=== PATIENT | male | born 1985 | race African-American/Black ===

== ENCOUNTER 2017-09-02 16:33 | Emergency (ER) | payer BC, SELFPAY | END 2017-09-02 19:53 | disposition home or self-care (01) | LOC: ERS 16:33 | DX: S02.5XXA Fracture of tooth (traumatic), initial encounter for closed fracture (principal); S00.83XA Contusion of other part of head, initial encounter; F17.210 Nicotine dependence, cigarettes, uncomplicated; V47.6XXA Car passenger injured in collision with fixed or stationary object in traffic accident, initial encounter | CPT/HCPCS: 99283 ==

== ENCOUNTER 2017-10-16 15:44 | Emergency (ER) | payer SELFPAY ==
[2017-10-16] MEDS ORDERED: Ketorolac Tromethamine 30 MG/ML VIAL ONE (17:44)
== END 2017-10-16 18:49 | disposition home or self-care (01) ==
LOC: ERS 15:44
DX: M70.911 Unspecified soft tissue disorder related to use, overuse and pressure, right shoulder (principal); F17.210 Nicotine dependence, cigarettes, uncomplicated
CPT/HCPCS: 96372; J1885

== ENCOUNTER 2018-12-08 17:31 | Emergency (ER) | payer OTHER, SELFPAY ==
[2018-12-08] MEDS ORDERED: Bacitracin Zinc 1 Packet ONE (18:22)
== END 2018-12-08 18:56 ==
LOC: ERS 17:31
DX: S61.512A Laceration without foreign body of left wrist, initial encounter (principal); F17.210 Nicotine dependence, cigarettes, uncomplicated; X58.XXXA Exposure to other specified factors, initial encounter
CPT/HCPCS: 12002